=== PATIENT | male | born 1955 | race Caucasian/White ===

== ENCOUNTER 2018-11-09 18:54 | Inpatient (IN) | payer BC, MEDICARE ==
[~2018-11-09] VITALS: Ht 182.9 cm; Wt 110.0 kg
[~2018-11-09 18:54] MED LIST: ACAR50TA PO; ALLO100T PO; CHOL100010 PO; DULO-31 PO; GABA-338 PO; GLYB2.5T59 PO; HYDR-4069 PO; LOP25T PO; MAG400T PO; NIF150C PO; OLAN2.5T3 PO; OXYC40TA39 PO; PANT20TA3 PO; PARO25TA16 PO; PER10325T PO; ROSU20TA PO; SUCR1TAB28 PO; TAMS0.4C32 PO; TRAZ-91 PO
[2018-11-09] MEDS ORDERED: normal saline 1000ML IV soln IVB ONE (19:05)
[2018-11-09] MEDS ORDERED: naloxone 0.4 mg/ml inj IV ONE ×2 (19:05→19:10)
[2018-11-09 19:20] LABS: BASOPHILS % (AUTO) 0.6 % (0-1); EOSINOPHILS # (AUTO) 0.1 X10'3 (0-0.9); EOSINOPHILS % (AUTO) 1.4 % (0-6); HEMATOCRIT 45.5 % (42.0-52.0); HEMOGLOBIN 15.2 g/dl (14.0-17.9); LYMPHOCYTES % (AUTO) 32.7 % (21-51); MEAN CORPUSCULAR HEMOGLOBIN 31.1 PG (27.0-31.0); MEAN CORPUSCULAR HGB CONC 33.3 g/dL (33.0-36.5); MEAN CORPUSCULAR VOLUME 93.3 FL (78-98); MEAN PLATELET VOLUME 8.9 FL (7.4-10.4); MONOCYTES # (AUTO) 0.5 X10'3 (0-0.9); NEUTROPHILS # (AUTO) 3.6 X10'3 (1.8-7.7); NEUTROPHILS % (AUTO) 57.3 % (42-75); PLATELET COUNT 145 X10'3 (140-440); RED BLOOD COUNT 4.88 X10'6 (4.70-6.10); RED CELL DISTRIBUTION WIDTH 14.7 % (11.5-14.5); WHITE BLOOD COUNT 6.2 X10'3 (4.5-11.0)
[2018-11-09 19:31] LABS: ACETAMINOPHEN < 2.0 UG/ML (10-30); ALANINE AMINOTRANSFERASE 36 U/L (12-78); ALBUMIN 3.6 G/DL (3.4-5.0); ALBUMIN/GLOBULIN RATIO 0.9 (1.1-1.5); ALKALINE PHOSPHATASE 84 IU/L (46-116); ANION GAP 13 (8-16); ASPARTATE AMINO TRANSFERASE 21 U/L (10-37); BILIRUBIN,TOTAL 0.3 MG/DL (0.1-1.0); BLOOD UREA NITROGEN 24 MG/DL (7-18); BUN/CREATININE RATIO 21.8 (5.4-32.0); CALCIUM 8.9 MG/DL (8.5-10.1); CHLORIDE 101 MMOL/L (99-107); ETHANOL 0.258 GM/DL (0.0-0.010); GLUCOSE 110 MG/DL (70-104); POTASSIUM 4.2 MMOL/L (3.5-5.1); SODIUM 136 MMOL/L (135-145); TOTAL PROTEIN 7.4 G/DL (6.4-8.2); eGFR 67 ML/MIN
--- NOTE | 2018-11-09 19:57 | NUR ---
ATTEMPTED TO PLACE DE SOUZA CATH X 3, UNSUCCESSFUL, I USED DIFFERENT SIZE CATH AND TIP STYLES. MD AGREED WITH CONDOM CATH PLAN TO COLLECT URINE.
--- NOTE | 2018-11-09 20:06 | NUR ---
POISON CONTROL AGREES WITH PLAN OF CARE,
--- NOTE | 2018-11-09 20:41 | NUR ---
STILL UNABLE TO GET URINE SAMPLE FROM THE PATIENT.
--- NOTE | 2018-11-09 22:45 | NUR ---
PTS CALLED AND TOLD ME THAT THE PATIENT WAS RECENTLY RELEASED FROM [facility] FROM A MENTAL HEALTH HOLD BECAUSE THEY COULDN'T FIND PLACEMENT FOR HIM. SAID PT LEFT VOICEMAIL STATING HE WAS GOING TO KILL HIMSELF AND THAT HE DRANK AND TOOK SLEEPING PILLS. CAN CONFIRM THAT THE PATIENT WENT TO THE STORE HIMSELF AND BOUGHT WINE TO DRINK TONIGHT.
--- NOTE | 2018-11-09 22:52 | NUR ---
PT ABLE TO USE BEDSIDE COMMODE WITHOUT ASSISTANCE.
--- NOTE | 2018-11-09 23:36 | NUR ---
PT APPEARS TO BE SLEEPING AT THIS TIME, REFUSING VITAL SIGNS. PRIOR TO SLEEPING PT WAS A&OX4.
--- NOTE | 2018-11-10 01:33 | NUR ---
PT CONTINUES TO REFUSE VITAL SIGNS, PT UP TO USE BEDSIDE COMMODE UNDER HIS OWN POWER. APPEARS IN NO ACUTE DISTRESS.
[2018-11-10 02:41] LABS: URINE AMPHETAMINE SCREEN NEGATIVE (Neg); URINE BARBITUATE SCREEN NEGATIVE (Neg); URINE BENZODIAZEPINES SCREEN NEGATIVE (Neg); URINE CANNABINOID SCREEN NEGATIVE (Neg); URINE COCAINE SCREEN NEGATIVE (Neg); URINE METHADONE SCREEN NEGATIVE (Neg); URINE OPIATE SCREEN NEGATIVE (Neg); URINE PHENCYCLIDINE SCREEN NEGATIVE (Neg)
[2018-11-10 02:45] LABS: CLARITY,URINE CLEAR (Clear); COLOR,URINE YELLOW (Yellow); UA COLLECTION TYPE VOIDED
[2018-11-10 02:46] LABS: GLUCOSE, URINE NEGATIVE (Neg); KETONES,URINE NEGATIVE (Neg); NITRITES, URINE NEGATIVE (Neg); OCCULT BLOOD,URINE MODERATE (Neg); PROTEIN,URINE NEGATIVE (Neg)
[2018-11-10 02:47] LABS: LEUKOCYTE ESTERASE ,URINE NEGATIVE (Neg); UROBILINOGEN,URINE 0.2 E.U/dL (0.2-1.0)
[2018-11-10 02:54] LABS: BACTERIA,URINE FEW /HPF (Neg); SQUAMOUS EPITHELIAL CELL,UR FEW /LPF (FEW); WBC,URINE 0-4 /HPF (0-4)
--- NOTE | 2018-11-10 02:54 | NUR ---
WHILE CODING ANOTHER PATIENT, MR WOODY WAS FOUND SITTING ON THE FLOOR, HE HAD PLACED CHUCKS ON THE GROUND, AND SAID HE HELPED HIMSELF TO THE FLOOR. PT FOUND COVERED IN FECES DESPITE HAVING A BEDSIDE COMMODE IN THE ROOM AND SEEING HIM USE IT MULTIPLY TIMES. PT WAS TAKEN TO THE OUTSIDE SHOWER VIA WHEELCHAIR AND WAS HOSED OFF WITH WARM WATER. PT GIVEN A PAIR OF GREEN SCRUBS, AND WAS MEDICALLY CLEARED BY MD CALVILLO.
[2018-11-10 02:55] LABS: MUCUS STRANDS FEW /LPF (Neg)
--- NOTE | 2018-11-10 03:00 | NUR ---
PT GIVEN BLANKETS AND A PILLOW, ALL ITEMS REMOVED FROM THE ROOM INCLUDING THE GURNEY BED, MATTRESSES PLACED ON THE GROUND. PT LAYING ON HIS SIDE.
--- NOTE | 2018-11-10 05:38 | NUR ---
Dr. Nation notified of lactic acid that worsened with IVF. He states he will look into patient and place orders.
[2018-11-10] MEDS ORDERED: normal saline 1000ML IV soln IVB ONE (05:40)
--- NOTE | 2018-11-10 06:01 | NUR ---
New IV started and IVF hung. Attempted to collect stool sample from patient but none is present and he denies needing to have a BM at this time.
--- NOTE | 2018-11-10 06:14 | NUR ---
Telepsychiatrist updated on patient's condition and states she will see the patient in 2 minutes.
[2018-11-10] MEDS ORDERED: ondansetron/PF 4mg/2ml inj IV ONE (07:35)
[2018-11-10] MEDS ORDERED: pantoprazole 40 MG vial IV ONE (07:35)
[2018-11-10 07:59] LABS: BASOPHILS % (AUTO) 0.4 % (0-1); EOSINOPHILS % (AUTO) 0 % (0-6); HEMATOCRIT 38.9 % (42.0-52.0); HEMOGLOBIN 13.1 g/dl (14.0-17.9); LYMPHOCYTES # (AUTO) 0.9 X10'3 (1.1-4.8); LYMPHOCYTES % (AUTO) 12.1 % (21-51); MEAN CORPUSCULAR HEMOGLOBIN 31.5 PG (27.0-31.0); MEAN CORPUSCULAR HGB CONC 33.7 g/dL (33.0-36.5); MEAN CORPUSCULAR VOLUME 93.4 FL (78-98); MEAN PLATELET VOLUME 9.1 FL (7.4-10.4); MONOCYTES # (AUTO) 0.7 X10'3 (0-0.9); MONOCYTES % (AUTO) 8.8 % (2-12); NEUTROPHILS % (AUTO) 78.7 % (42-75); PLATELET COUNT 125 X10'3 (140-440); RED BLOOD COUNT 4.17 X10'6 (4.70-6.10); RED CELL DISTRIBUTION WIDTH 14.5 % (11.5-14.5); WHITE BLOOD COUNT 7.6 X10'3 (4.5-11.0)
[2018-11-10 08:08] LABS: ALANINE AMINOTRANSFERASE 24 U/L (12-78); ALBUMIN 3.1 G/DL (3.4-5.0); ALBUMIN/GLOBULIN RATIO 0.9 (1.1-1.5); ALKALINE PHOSPHATASE 79 IU/L (46-116); ANION GAP 17 (8-16); ASPARTATE AMINO TRANSFERASE 20 U/L (10-37); BILIRUBIN,TOTAL 0.3 MG/DL (0.1-1.0); BLOOD UREA NITROGEN 25 MG/DL (7-18); BUN/CREATININE RATIO 21.4 (5.4-32.0); CALCIUM 7.6 MG/DL (8.5-10.1); CHLORIDE 106 MMOL/L (99-107); CREATININE 1.17 MG/DL (0.60-1.10); GLUCOSE 106 MG/DL (70-104); LIPASE 61 U/L (73-393); POTASSIUM 4.3 MMOL/L (3.5-5.1); SODIUM 140 MMOL/L (135-145); TOTAL CARBON DIOXIDE 17.4 MMOL/L (24-32); TOTAL PROTEIN 6.5 G/DL (6.4-8.2); eGFR 63 ML/MIN
--- NOTE | 2018-11-10 08:12 | NUR ---
CALLED POISON CONTROL AND TOLD THEM THAT THE PT STATED HE TOOK A 90 DAY SUPPLY OF TRAZODONE.CALLED POISON CONTROL KISHAN STATES SHE IS GOING TO CLOSE OUT THE CASE. NO RECOMMENDATION AT THIS TIME, KISHAN STATES SUPPORTIVE CARE AND THAT THE PT NO LONGER NEEDS TO BE FOLLOWED BY POISON CONTROL
[2018-11-10] MEDS ORDERED: normal saline 1000ml 1,000 ML IV ONE (08:50)
[2018-11-10 09:10] LABS: CREATINE KINASE 239 U/L (39-308)
[2018-11-10] MEDS ORDERED: potassium Cl 40MEQ/NS 500ml 500 ML IV PRN ×2 (11:15)
[2018-11-10] MEDS ORDERED: ondansetron/PF 4mg/2ml inj IV PRN (11:15)
[2018-11-10] MEDS ORDERED: mag hydrox/Alum hydrox/simeth 30ml oral suspension PO PRN (11:15)
[2018-11-10] MEDS ORDERED: magnesium 2GM in 50ml NS 50 ML IV PRN (11:15)
[2018-11-10] MEDS ORDERED: morphine 4 MG/ML inj SYRINge IV PRN ×2 (11:15)
[2018-11-10] MEDS ORDERED: magnesium Cl slow-release 64mg tablet PO PRN (11:15)
[2018-11-10] MEDS ORDERED: magnesium 4gm in 100ml NS 100 ML IV PRN (11:15)
[2018-11-10] MEDS ORDERED: potassium Cl 20 mEq SR tablet PO PRN ×2 (11:15)
[2018-11-10] MEDS ORDERED: HYDROcodone/acetaminophen 5mg/325mg tablet PO PRN (11:15)
[2018-11-10] MEDS ORDERED: acetaminophen 325mg tablet PO PRN ×2 (11:15)
[2018-11-10] MEDS ORDERED: magnesium hydroxide 30ml (MOM) UD suspension PO PRN (11:15)
[2018-11-10] MEDS: normal saline 1000ml 1,000 ML IV SCH ×2 (12:00→20:27)
[2018-11-10 14:48] LABS: HEMOGLOBIN A1C 5.7 % (4.5-6.2)
[2018-11-10] MEDS ORDERED: haloperidol 5mg tablet PO PRN (16:15)
[2018-11-10] MEDS ORDERED: haloperidol lactate 5mg/ml inj IM PRN (16:15)
[2018-11-10] MEDS ORDERED: dextrose 50%-water 50ml dispensing syringe IV PRN (16:15)
[2018-11-10] MEDS ORDERED: MULT1TAB74 PO (18:43)
[2018-11-10] MEDS ORDERED: ZIN220C PO (18:46)
[2018-11-10] MEDS ORDERED: PROC-8 PO (18:53)
[2018-11-10] MEDS ORDERED: AMLO2.5T2 PO (18:56)
[2018-11-10] MEDS ORDERED: CHOL100024 PO (18:59)
[2018-11-10] MEDS ORDERED: CYAN100097 PO (19:02)
[2018-11-10] MEDS ORDERED: IBUP-1985 PO (19:03)
[2018-11-10] MEDS ORDERED: ACET-75 PO (19:21)
[2018-11-10 20:00] VITALS: BP 125/87
[2018-11-10] MEDS ORDERED: proCHLORperazine 10mg tablet PO PRN (20:05)
[2018-11-10] MEDS: sucralfate 1 gm tablet PO SCH (20:26)
[2018-11-10] MEDS: gabapentin 300mg capsule PO SCH (20:26)
[2018-11-10] MEDS: HYDROcodone/acetaminophen 10/325mg tab PO PRN (20:41)
[2018-11-11] VITALS: BP 136/73
[2018-11-11 05:02] LABS: BASOPHILS % (AUTO) 0.6 % (0-1); EOSINOPHILS # (AUTO) 0.1 X10'3 (0-0.9); EOSINOPHILS % (AUTO) 1.4 % (0-6); HEMATOCRIT 36.8 % (42.0-52.0); HEMOGLOBIN 12.4 g/dl (14.0-17.9); LYMPHOCYTES # (AUTO) 1.4 X10'3 (1.1-4.8); LYMPHOCYTES % (AUTO) 28.2 % (21-51); MEAN CORPUSCULAR HEMOGLOBIN 31.3 PG (27.0-31.0); MEAN CORPUSCULAR HGB CONC 33.6 g/dL (33.0-36.5); MEAN PLATELET VOLUME 9.3 FL (7.4-10.4); MONOCYTES # (AUTO) 0.6 X10'3 (0-0.9); NEUTROPHILS # (AUTO) 2.9 X10'3 (1.8-7.7); NEUTROPHILS % (AUTO) 57.8 % (42-75); PLATELET COUNT 115 X10'3 (140-440); RED BLOOD COUNT 3.95 X10'6 (4.70-6.10); RED CELL DISTRIBUTION WIDTH 14.4 % (11.5-14.5)
[2018-11-11 05:21] LABS: ALBUMIN 2.8 G/DL (3.4-5.0); ANION GAP 8 (8-16); BLOOD UREA NITROGEN 18 MG/DL (7-18); BUN/CREATININE RATIO 18.6 (5.4-32.0); CALCIUM 8.1 MG/DL (8.5-10.1); CHLORIDE 112 MMOL/L (99-107); CREATININE 0.97 MG/DL (0.60-1.10); GLUCOSE 86 MG/DL (70-104); POTASSIUM 3.9 MMOL/L (3.5-5.1); SODIUM 147 MMOL/L (135-145); TOTAL CARBON DIOXIDE 26.6 MMOL/L (24-32); eGFR 78 ML/MIN
[2018-11-11] MEDS: normal saline 1000ml 1,000 ML IV SCH (05:21)
--- NOTE | 2018-11-11 06:43 | NUR ---
Problems reprioritized. Patient report given, questions answered & plan of care reviewed with NIKKI Addison.
--- NOTE | 2018-11-11 07:08 | NUR ---
Patient in room [facility]A 351. I have received report from MOOK JORDAN and had the opportunity to ask questions and assume patient care.
[2018-11-11 07:30] VITALS: BP 128/74
[2018-11-11] MEDS: multivitamins, therapeutics tablet PO SCH (07:59)
[2018-11-11] MEDS: allopurinol 300 MG tablet PO SCH (07:59)
[2018-11-11] MEDS: sucralfate 1 gm tablet PO SCH ×4 (07:59→21:43)
[2018-11-11] MEDS: gabapentin 300mg capsule PO SCH ×3 (07:59→21:43)
[2018-11-11] MEDS: duloxetine 30mg CAPSULE.DR PO SCH (07:59)
[2018-11-11] MEDS: amLODIPine 2.5mg tablet PO SCH (08:00)
[2018-11-11] MEDS: K and/or MAG REPLACEMENT MC SCH (08:00)
[2018-11-11] MEDS: vitamin D (cholecalciferol) 1,000 unit tablet PO SCH (08:00)
[2018-11-11] MEDS ORDERED: acarbose 50mg tablet PO SCH (08:00)
[2018-11-11] MEDS: pantoprazole 40mg Tablet.DR PO SCH (08:00)
[2018-11-11] MEDS: PARoxetine 20mg tablet PO SCH (08:02)
[2018-11-11] MEDS: zinc sulfate 220mg capsule PO SCH (08:05)
[2018-11-11] MEDS: cyanocobalamin 500mcg tablet PO SCH (08:41)
[2018-11-11 11:00] VITALS: BP 143/80
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
[2018-11-11] MEDS: HYDROcodone/acetaminophen 10/325mg tab PO PRN ×2 (12:21→21:45)
[2018-11-11] MEDS: LORazepam 2 mg/ml vial IV PRN ×2 (12:21→21:41)
[2018-11-11] MEDS: acarbose 50mg tablet PO SCH (17:16)
--- NOTE | 2018-11-11 18:17 | NUR ---
GAVE REPORT TO MARIE JORDAN
--- NOTE | 2018-11-11 18:20 | NUR ---
Patient in room [facility]A 351. I have received report from Cyn JORDAN and had the opportunity to ask questions and assume patient care. Patient standing in room urinating at change of shift. Will continue to monitor.
--- NOTE | 2018-11-11 19:19 | NUR ---
Received in report that the patient stated that it was painful to urinate. UA taken, spoke with Dr. Fernandez who agreed okay to obtain UA. Will continue to monitor.
[2018-11-11 20:00] VITALS: BP 137/77
[2018-11-11 21:33] LABS: CLARITY,URINE CLEAR (Clear); COLOR,URINE YELLOW (Yellow); GLUCOSE, URINE NEGATIVE (Neg); KETONES,URINE NEGATIVE (Neg); LEUKOCYTE ESTERASE ,URINE NEGATIVE (Neg); NITRITES, URINE NEGATIVE (Neg); OCCULT BLOOD,URINE TRACE-INTACT (Neg); PROTEIN,URINE NEGATIVE (Neg); UROBILINOGEN,URINE 0.2 E.U/dL (0.2-1.0)
[2018-11-11 21:35] LABS: UA COLLECTION TYPE NON-SPECIFIED
--- NOTE | 2018-11-11 21:36 | NUR ---
Patient requesting ativan and norco, discussed with charge nurse Terri, patient received together on dayshift and tolerated well per report. Terri RN states she agrees okay to give both due to VS stable and patient becoming more anxious about his urination, IV and IV fluids. Will continue to monitor.
[2018-11-11 21:41] LABS: RBC,URINE 0-2 /HPF (0-2); WBC,URINE NONE SEEN /HPF (0-4)
[2018-11-11 21:42] LABS: BACTERIA,URINE NONE SEEN /HPF (Neg); SQUAMOUS EPITHELIAL CELL,UR FEW /LPF (FEW)
[2018-11-12] VITALS: BP 159/98
[2018-11-12 05:18] LABS: ALBUMIN 2.8 G/DL (3.4-5.0); ANION GAP 6 (8-16); BLOOD UREA NITROGEN 19 MG/DL (7-18); BUN/CREATININE RATIO 20.4 (5.4-32.0); CALCIUM 8.5 MG/DL (8.5-10.1); CHLORIDE 106 MMOL/L (99-107); CREATININE 0.93 MG/DL (0.60-1.10); GLUCOSE 108 MG/DL (70-104); POTASSIUM 3.7 MMOL/L (3.5-5.1); SODIUM 140 MMOL/L (135-145); TOTAL CARBON DIOXIDE 27.7 MMOL/L (24-32); eGFR 82 ML/MIN
--- NOTE | 2018-11-12 06:39 | NUR ---
Problems reprioritized. Patient report given, questions answered & plan of care reviewed with Art RN. Patient eyes closed respirations even.
--- NOTE | 2018-11-12 07:01 | NUR ---
Patient in room ROSA 351. I have received report from Kayla JORDAN and had the opportunity to ask questions and assume patient care.
[2018-11-12 07:09] VITALS: BP 140/79
[2018-11-12] MEDS: K and/or MAG REPLACEMENT MC SCH (08:00)
[2018-11-12] MEDS: acarbose 50mg tablet PO SCH ×3 (08:40→18:00)
[2018-11-12] MEDS: sucralfate 1 gm tablet PO SCH ×4 (08:41→20:49)
[2018-11-12] MEDS: duloxetine 30mg CAPSULE.DR PO SCH (08:41)
[2018-11-12] MEDS: gabapentin 300mg capsule PO SCH ×3 (08:42→20:50)
[2018-11-12] MEDS: amLODIPine 2.5mg tablet PO SCH (08:42)
[2018-11-12] MEDS: pantoprazole 40mg Tablet.DR PO SCH (08:44)
[2018-11-12] MEDS: multivitamins, therapeutics tablet PO SCH (08:44)
[2018-11-12] MEDS: allopurinol 300 MG tablet PO SCH (08:44)
[2018-11-12] MEDS: cyanocobalamin 500mcg tablet PO SCH (08:44)
[2018-11-12] MEDS: vitamin D (cholecalciferol) 1,000 unit tablet PO SCH (08:45)
[2018-11-12] MEDS: PARoxetine 20mg tablet PO SCH (08:46)
[2018-11-12] MEDS: zinc sulfate 220mg capsule PO SCH (09:01)
--- NOTE | 2018-11-12 11:02 | NUR ---
SS met w/pt and provided informed consent re pending 5150 evaluation from [facility]. Pt exhibited flat mood & affect, monotoned speech and low energy. SS also met w/attending RN to inform him of need for note from doctor re pt's medical clearance for d/c and a 1798 in order for SS to move fwd with referral to [facility] for 5150 Eval. SS will continue to monitor and complete referral to [facility] once pt's medically cleared for d/c and a 1798 ordered. Addendum: 11/12/18 at 1106 by Raven Ring SS Amended: Links added.
[2018-11-12 11:07] VITALS: BP 158/83
[2018-11-12] MEDS: HYDROcodone/acetaminophen 10/325mg tab PO PRN ×2 (14:04→19:29)
[2018-11-12] MEDS ORDERED: LORazepam 2 mg/ml vial IV PRN (16:15)
--- NOTE | 2018-11-12 18:29 | NUR ---
Problems reprioritized. Patient report given, questions answered & plan of care reviewed with Kayla JORDAN.
[2018-11-12 20:00] VITALS: BP 154/87
[2018-11-12] MEDS: ibuprofen 200mg tablet PO PRN (20:50)
[2018-11-12] MEDS: LORazepam 1 MG tablet PO PRN (23:47)
[2018-11-13] VITALS: BP 150/85
--- NOTE | 2018-11-13 06:00 | NUR ---
Patient in room ROSA 351. I have received report from Kayla JORDAN and had the opportunity to ask questions and assume patient care.
--- NOTE | 2018-11-13 06:37 | NUR ---
Problems reprioritized. Patient report given, questions answered & plan of care reviewed with Chika JORDAN. Patient resting eyes closed respirations even.
[2018-11-13] MEDS: K and/or MAG REPLACEMENT MC SCH (07:27)
[2018-11-13] MEDS: PARoxetine 20mg tablet PO SCH (07:38)
[2018-11-13] MEDS: amLODIPine 2.5mg tablet PO SCH (07:39)
[2018-11-13] MEDS: zinc sulfate 220mg capsule PO SCH (07:39)
[2018-11-13] MEDS: sucralfate 1 gm tablet PO SCH ×4 (07:39→20:08)
[2018-11-13] MEDS: cyanocobalamin 500mcg tablet PO SCH (07:39)
[2018-11-13] MEDS: acarbose 50mg tablet PO SCH ×3 (07:39→17:03)
[2018-11-13] MEDS: HYDROcodone/acetaminophen 10/325mg tab PO PRN ×4 (07:39→21:42)
[2018-11-13] MEDS: multivitamins, therapeutics tablet PO SCH (07:39)
[2018-11-13] MEDS: allopurinol 300 MG tablet PO SCH (07:39)
[2018-11-13] MEDS: pantoprazole 40mg Tablet.DR PO SCH (07:39)
[2018-11-13] MEDS: gabapentin 300mg capsule PO SCH ×3 (07:39→20:10)
[2018-11-13] MEDS: vitamin D (cholecalciferol) 1,000 unit tablet PO SCH (07:39)
[2018-11-13] MEDS: duloxetine 30mg CAPSULE.DR PO SCH (07:39)
[2018-11-13 07:47] VITALS: BP 150/81
--- NOTE | 2018-11-13 09:08 | NUR ---
SS contacted [facility] Office- [phone] to coordinate 5150 referral, referral packet faxed to [facility], a copy sent to co-located [facility] clinician. 5150 itzel pending. Addendum: 11/13/18 at 0910 by Raven YEE Amended: Links added.
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
[2018-11-13 11:46] VITALS: BP 143/93
--- NOTE | 2018-11-13 12:29 | NUR ---
SS had t/c w/[facility] office and was informed that pt's referral for a MH Assessment to determine 5150 status has been received and currently being reviewed @ this time. Addendum: 11/13/18 at 1231 by Raven Ring SS Amended: Links added.
--- NOTE | 2018-11-13 16:16 | NUR ---
SS met w/[facility] intake staff and advocated for them to review pt's referral for a 5150 to determine if admission to [facility] would be appropriate pending availability of bed. Referral packet was accepted for review. RN & CM informed. Addendum: 11/13/18 at 1617 by Raven Ring SS Amended: Links added.
[2018-11-13 18:00] VITALS: BP 142/88
--- NOTE | 2018-11-13 18:18 | NUR ---
Problems reprioritized. Patient report given, questions answered & plan of care reviewed with Rosario JORDAN.
--- NOTE | 2018-11-13 18:29 | NUR ---
Patient in room [facility]A 351. I have received report from WENDY JORDAN and had the opportunity to ask questions and assume patient care. PATIENT RESTING COMFORTABLY IN HIS ROOM WITH SITTER. NO S/S OF DISTRESS AT THIS TIME.
[2018-11-13] MEDS: LORazepam 1 MG tablet PO PRN (20:10)
[2018-11-13] MEDS: ibuprofen 200mg tablet PO PRN (20:10)
[2018-11-14] VITALS: BP 155/88
[2018-11-14] MEDS: LORazepam 1 MG tablet PO PRN (00:21)
--- NOTE | 2018-11-14 06:19 | NUR ---
Problems reprioritized. Patient report given, questions answered & plan of care reviewed with PHILIPP JORDAN. PATIENT WAS SLEEPING DURING BEDSIDE REPORT, RESTING COMFORTABLY NO S/S OF DISTRESS.
--- NOTE | 2018-11-14 06:41 | NUR ---
Patient in room [facility]A 351. I have received report from Rosario JORDAN and had the opportunity to ask questions and assume patient care.
[2018-11-14 06:49] VITALS: BP 176/87
[2018-11-14] MEDS: K and/or MAG REPLACEMENT MC SCH (06:55)
[2018-11-14] MEDS: acarbose 50mg tablet PO SCH ×2 (07:30→12:25)
[2018-11-14] MEDS: gabapentin 300mg capsule PO SCH ×2 (07:30→12:25)
[2018-11-14] MEDS: vitamin D (cholecalciferol) 1,000 unit tablet PO SCH (07:30)
[2018-11-14] MEDS: allopurinol 300 MG tablet PO SCH (07:30)
[2018-11-14] MEDS: zinc sulfate 220mg capsule PO SCH (07:30)
[2018-11-14] MEDS: sucralfate 1 gm tablet PO SCH ×2 (07:30→12:25)
[2018-11-14] MEDS: duloxetine 30mg CAPSULE.DR PO SCH (07:30)
[2018-11-14] MEDS: pantoprazole 40mg Tablet.DR PO SCH (07:31)
[2018-11-14] MEDS: amLODIPine 2.5mg tablet PO SCH (07:31)
[2018-11-14] MEDS: multivitamins, therapeutics tablet PO SCH (07:31)
[2018-11-14] MEDS: cyanocobalamin 500mcg tablet PO SCH (07:31)
[2018-11-14] MEDS: PARoxetine 20mg tablet PO SCH (07:39)
[2018-11-14] MEDS: HYDROcodone/acetaminophen 10/325mg tab PO PRN ×2 (07:39→12:26)
[2018-11-14 11:08] VITALS: BP 145/90
--- NOTE | 2018-11-14 14:33 | NUR ---
charge nurse compa RN d/c pt to ER overflow while I was at lunch. Report called to ER overflow Terry JORDAN pt escorted in w/c with security and one staff. all belongings sent with him.
[2018-11-14] MEDS ORDERED: LORazepam 1 MG tablet PO PRN (16:15)
[2018-11-14] MEDS ORDERED: LORazepam 2 mg/ml vial IV PRN (16:15)
== END 2018-11-14 14:47 | disposition short-term general hospital (02) | DRG 641 ==
LOC: ER 18:54 → ED HOLD 11-10 11:13 → SUR 3N 11-10 13:44
PROVIDERS: ADMIT Hospitalist; ATTEND Hospitalist
DX: E87.2 Acidosis (principal); F10.239 Alcohol dependence with withdrawal, unspecified; G93.40 Encephalopathy, unspecified; R45.851 Suicidal ideations; E11.9 Type 2 diabetes mellitus without complications; F10.229 Alcohol dependence with intoxication, unspecified; G89.29 Other chronic pain; M54.9 Dorsalgia, unspecified; R19.7 Diarrhea, unspecified; Z88.8 Allergy status to other drugs, medicaments and biological substances; Z79.899 Other long term (current) drug therapy
CPT/HCPCS: 36415; 71045; 74176; 80048; 80053; 80305; 80320; 80329; 81001; 82550; 83036; 83605; 83690; 83735; 84145; 85025; 87040; 87070; 93005; 96374; 96375; 97116; 97161; 99285; C9113; G0378; J2060; J2310; J2405; J3420; J7030

== ENCOUNTER 2018-11-14 14:51 | Emergency (ER) | payer BC, MEDICARE ==
[~2018-11-14] VITALS: Ht 180.3 cm; Wt 81.0 kg
[~2018-11-14 14:51] MED LIST changes: +AMLO2.5T2 PO; -CHOL100010 PO; +CHOL100024 PO; +CYAN100097 PO; -GLYB2.5T59 PO; -HYDR-4069 PO; +IBUP-1985 PO; -LOP25T PO; -MAG400T PO; +MULT1TAB74 PO; -NIF150C PO; -OLAN2.5T3 PO; -OXYC40TA39 PO; -PER10325T PO; +PROC-8 PO; -ROSU20TA PO; +ROSU20TA2 PO; -TAMS0.4C32 PO; -TRAZ-91 PO; +ZIN220C PO
--- NOTE | 2018-11-14 15:00 | NUR ---
Received report from NIKKI Fortune on surgical floor. Patient arrived to floor and in bed 23. Patient refusing vitals at this time. Patient resting in bed, respirations even and unlabored will continue to monitor him.
--- NOTE | 2018-11-14 16:09 | NUR ---
assisted patient to bathroom
--- NOTE | 2018-11-14 16:20 | NUR ---
Kristensamy resting on his back in bed, respirations even and unlabored, no distress noted. will continue to monitor.
--- NOTE | 2018-11-14 16:37 | NUR ---
Patient refusing to review or verify any home medications at this time. Patient states "I do not want to be here so I do not want to cooperate." will attempt again at a later time and continue to monitor.
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
--- NOTE | 2018-11-14 17:37 | NUR ---
Patient refusing vital signs, states "I don't belong here so I'm not going to let anyone do anything while I'm here."
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
--- NOTE | 2018-11-14 18:50 | NUR ---
Pt recieved dinner tray, but refused to eat. PCT will attempt to give pt a snack later in the evening. Pt resting quietly in bed. Respirations even and unlabored
--- NOTE | 2018-11-14 19:40 | NUR ---
Pt lying in bed awake. Pt quiet and resting. Pt noted to have a cough.
--- NOTE | 2018-11-14 20:30 | NUR ---
Pt resting quietly in bed. Respirations even and unlabored, occasional cough noted. Pt made one trip to the bathroom independantly.
--- NOTE | 2018-11-14 21:21 | NUR ---
PT refused food and water.
--- NOTE | 2018-11-14 21:40 | NUR ---
Pt C/O chronic back pain of 02/22. Pt med rec completed and signed. Ibuprofen 600 mg ordered.
[2018-11-14] MEDS ORDERED: ibuprofen tablet 400 MG TABLET PO PRN (22:25)
--- NOTE | 2018-11-14 22:50 | NUR ---
Pt given 600 mg ibuprofen for chronic back pain. Pt requested ativan for sleep, stating that he was given ativan on the floor. Pt told that ativan was part of the ETOH protocol, and other options were discussed. Pt has a history of use of trazadone 300 mg for sleep. Pt behavior calm and cooperative.
--- NOTE | 2018-11-14 23:08 | NUR ---
PT asked for water. This personal lines underwriter offered PT neris villalta and he accepted.
[2018-11-14] MEDS: ibuprofen 200mg tablet PO PRN (23:40)
--- NOTE | 2018-11-14 23:50 | NUR ---
Pt resting quietly, lying on his back. Respirations even and unlabored, occasional cough.
[2018-11-15] MEDS ORDERED: traZODone 50mg tablet PO SCH ×2 (00:35→21:00)
[2018-11-15] MEDS ORDERED: benzonatate 100mg capsule PO ONE ×2 (00:35→19:50)
--- NOTE | 2018-11-15 00:40 | NUR ---
Pt given trazadone 100 mg for sleep, and tessalon pearls for cough. pt behavior calm and cooperative.
--- NOTE | 2018-11-15 01:22 | NUR ---
Pt lying in bed on back, eyes closed, appears to be sleeping. Occasional cough, otherwise respirations even and unlabored.
--- NOTE | 2018-11-15 02:30 | NUR ---
Patient resting in bed quietly, appears to be asleep. Respirations even and unlabored. Occasional coughing.
[2018-11-15] MEDS ORDERED: proCHLORperazine 10mg tablet PO PRN (04:30)
[2018-11-15] MEDS: ibuprofen 200mg tablet PO PRN ×2 (05:38→15:32)
[2018-11-15] MEDS ORDERED: atorvastatin 20mg tablet PO SCH (08:00)
[2018-11-15] MEDS ORDERED: acetaminophen 325mg tablet PO ONE ×2 (08:25→19:50)
[2018-11-15] MEDS: PARoxetine 20mg tablet PO SCH (08:29)
[2018-11-15] MEDS: gabapentin 300mg capsule PO SCH ×3 (08:29→20:04)
[2018-11-15] MEDS: pantoprazole 40mg Tablet.DR PO SCH (08:30)
[2018-11-15] MEDS: zinc sulfate 220mg capsule PO SCH (08:30)
[2018-11-15] MEDS: duloxetine 30mg CAPSULE.DR PO SCH (08:30)
[2018-11-15] MEDS: sucralfate 1 gm tablet PO SCH ×4 (08:31→20:04)
[2018-11-15] MEDS: vitamin D (cholecalciferol) 1,000 unit tablet PO SCH (08:31)
[2018-11-15] MEDS: multivitamins, therapeutics tablet PO SCH (08:32)
[2018-11-15] MEDS: amLODIPine 2.5mg tablet PO SCH (08:32)
[2018-11-15] MEDS: allopurinol 300 MG tablet PO SCH (09:01)
[2018-11-15] MEDS: cyanocobalamin 500mcg tablet PO SCH (09:01)
[2018-11-15] MEDS: acarbose 50mg tablet PO SCH ×3 (09:02→17:37)
--- NOTE | 2018-11-15 09:55 | NUR ---
PT IS SUPINE IN BED, EQUAL, UNLABORED BREATHING, EYES CLOSED, NO S/S OF DISTRESS
--- NOTE | 2018-11-15 10:52 | NUR ---
CALLED PHARMACY RE: [facility], THEY WILL ADDRESS
--- NOTE | 2018-11-15 11:14 | NUR ---
PT IS SUPINE IN BED, EYES CLOSED, APPEARS TO BE SLEEPING, UNLABORED BREATHING PRESENT
--- NOTE | 2018-11-15 12:23 | NUR ---
PT IS SUPINE IN BED EYES CLOSED, JUST REPOSITIONED HIMSELF, NO AGITATION
--- NOTE | 2018-11-15 13:38 | NUR ---
PT DOES NOT WANT TO EAT HIS DINNER, HE SAYS IT DOES NOT LOOK GOOD TO HIM, HE WAS OFFERED ALTERNATIVE MEALS, SAID NOTHING SOUNDED GOOD EXCEPT PEPSI, WE DO NOT HAVE PEPSI. I ASKED HIM IF HE WAS UP TO VISITORS TODAY, HE ASKE WHO, I SAID ONE OF YOUR CHILDREN, HE SAID THIS IS OK, I ASKED IF IT WAS OK TO SPEAK TO HIS , OR IF SHE WAS ALLOWED TO VISIT [facility] TODAY, HE SAID THAT YES SHE COULD COME AND THAT I COULD CALL HER
--- NOTE | 2018-11-15 14:55 | NUR ---
PT IS AWAKE IN BED, SUPINE, NO S/S OF DISTRESS OBSERVED
--- NOTE | 2018-11-15 15:50 | NUR ---
NASIM A NOTE FROM THE PHARMACY RE: PTS OWN MEDICATION (CRESTOR), I CALLED THE PTS , SHE WILL BRING IT IN TONIGHT
--- NOTE | 2018-11-15 15:51 | NUR ---
PT REQUESTED TYLENOL, I OBTAINED FOR HIM, NO S/S OF DISRTRESS
--- NOTE | 2018-11-15 17:12 | NUR ---
PT IS SUPINE IN BED, NO S/S OF DISTRESS OBSERVED, SPONTANEOUS BREATHING NOTED
--- NOTE | 2018-11-15 18:12 | NUR ---
PT IS IN BED, HAS JUST ARRIVED, CALM, NO S/S OF AGITATION OBSERVED
--- NOTE | 2018-11-15 18:42 | NUR ---
PTS BROUGHT IN MEDICATIONS, ROSUVASTATIN CALCIUM 40 MG TABS # 81
--- NOTE | 2018-11-15 19:18 | NUR ---
PT IS SUPINE IN BED NO S/S OF DISTRESS OBSERVED
[2018-11-15] MEDS: betamet diprop/prop gly 0.05% cream 15gm TP SCH (20:00)
[2018-11-15] MEDS ORDERED: traZODone 50mg tablet PO ONE (21:05)
--- NOTE | 2018-11-15 22:00 | NUR ---
PT IS RESTING COMFORTABLY, NO S/S OF ANY DISTRESS.
--- NOTE | 2018-11-16 01:21 | NUR ---
NO NEEDS AT THIS TIME. PT RESTING COMFORTABLY. RESPIRATIONS EVEN AND UNLABORED. NO S/S OF DISTRESS.
--- NOTE | 2018-11-16 04:54 | NUR ---
NO NEEDS AT THIS TIME. PT RESTING COMFORTABLY. RESPIRATIONS EVEN AND UNLABORED. NO S/S OF DISTRESS.
[2018-11-16] MEDS: ibuprofen 200mg tablet PO PRN ×3 (05:40→23:33)
[2018-11-16] MEDS: pantoprazole 40mg Tablet.DR PO SCH (07:57)
[2018-11-16] MEDS: multivitamins, therapeutics tablet PO SCH (07:58)
[2018-11-16] MEDS: sucralfate 1 gm tablet PO SCH ×4 (07:58→20:59)
[2018-11-16] MEDS: PARoxetine 20mg tablet PO SCH (07:58)
[2018-11-16] MEDS: allopurinol 300 MG tablet PO SCH (07:59)
[2018-11-16] MEDS: gabapentin 300mg capsule PO SCH ×3 (07:59→20:59)
[2018-11-16] MEDS: zinc sulfate 220mg capsule PO SCH (08:00)
[2018-11-16] MEDS: acarbose 50mg tablet PO SCH ×3 (08:00→17:37)
[2018-11-16] MEDS: vitamin D (cholecalciferol) 1,000 unit tablet PO SCH (08:01)
[2018-11-16] MEDS: duloxetine 30mg CAPSULE.DR PO SCH (08:02)
[2018-11-16] MEDS: CRESTOR 40 MG PO SCH (08:03)
[2018-11-16] MEDS: cyanocobalamin 500mcg tablet PO SCH (08:04)
[2018-11-16] MEDS: amLODIPine 2.5mg tablet PO SCH (08:05)
[2018-11-16] MEDS: betamet diprop/prop gly 0.05% cream 15gm TP SCH ×2 (08:06→20:00)
--- NOTE | 2018-11-16 18:22 | NUR ---
gave report to caleb davis
--- NOTE | 2018-11-16 18:30 | NUR ---
Received report from Marylou JORDAN, patient provided dinner, will continue to monitor.
--- NOTE | 2018-11-17 00:36 | NUR ---
Covering for RN Lunch break: Patient is resting in bed with eyes closed. Resp are even and unlabored. Appearing to sleep comfortably without concerns or issues noted. Will continue to monitor.
[2018-11-17] MEDS: sucralfate 1 gm tablet PO SCH ×4 (07:52→20:10)
[2018-11-17] MEDS: pantoprazole 40mg Tablet.DR PO SCH (07:52)
[2018-11-17] MEDS: gabapentin 300mg capsule PO SCH ×3 (07:53→20:10)
[2018-11-17] MEDS: duloxetine 30mg CAPSULE.DR PO SCH (07:53)
[2018-11-17] MEDS: amLODIPine 2.5mg tablet PO SCH (07:53)
[2018-11-17] MEDS: PARoxetine 20mg tablet PO SCH (07:53)
[2018-11-17] MEDS: vitamin D (cholecalciferol) 1,000 unit tablet PO SCH (07:54)
[2018-11-17] MEDS: allopurinol 300 MG tablet PO SCH (07:54)
[2018-11-17] MEDS: zinc sulfate 220mg capsule PO SCH (07:54)
[2018-11-17] MEDS: multivitamins, therapeutics tablet PO SCH (07:54)
[2018-11-17] MEDS: cyanocobalamin 500mcg tablet PO SCH ×2 (08:27→08:31)
[2018-11-17] MEDS: acarbose 50mg tablet PO SCH ×3 (08:31→18:33)
[2018-11-17] MEDS: CRESTOR 40 MG PO SCH (08:32)
[2018-11-17] MEDS: betamet diprop/prop gly 0.05% cream 15gm TP SCH ×2 (08:32→20:00)
[2018-11-17] MEDS: ibuprofen 200mg tablet PO PRN ×2 (12:44→21:31)
--- NOTE | 2018-11-18 01:23 | NUR ---
Patient resting comfortably, no needs voiced at this time. 16 even and unlabored respirations.
[2018-11-18] MEDS: ibuprofen 200mg tablet PO PRN ×2 (05:44→14:04)
--- NOTE | 2018-11-18 06:30 | NUR ---
Awake at change of shift observation. Up to the bathroom then returned to bed. Pleasant upon staff obsrvation.
[2018-11-18] MEDS: duloxetine 30mg CAPSULE.DR PO SCH (07:55)
[2018-11-18] MEDS: pantoprazole 40mg Tablet.DR PO SCH (07:55)
[2018-11-18] MEDS: zinc sulfate 220mg capsule PO SCH (07:55)
[2018-11-18] MEDS: multivitamins, therapeutics tablet PO SCH (07:55)
[2018-11-18] MEDS: cyanocobalamin 500mcg tablet PO SCH (07:55)
[2018-11-18] MEDS: gabapentin 300mg capsule PO SCH ×3 (07:55→20:12)
[2018-11-18] MEDS: acarbose 50mg tablet PO SCH ×3 (07:56→18:15)
[2018-11-18] MEDS: CRESTOR 40 MG PO SCH (07:56)
[2018-11-18] MEDS: sucralfate 1 gm tablet PO SCH ×4 (07:57→20:12)
[2018-11-18] MEDS: vitamin D (cholecalciferol) 1,000 unit tablet PO SCH (08:04)
[2018-11-18] MEDS: amLODIPine 2.5mg tablet PO SCH (08:05)
[2018-11-18] MEDS: allopurinol 300 MG tablet PO SCH (08:06)
[2018-11-18] MEDS: betamet diprop/prop gly 0.05% cream 15gm TP SCH (08:06)
[2018-11-18] MEDS: PARoxetine 20mg tablet PO SCH (08:17)
--- NOTE | 2018-11-18 08:30 | NUR ---
Served breakfast tray. Ate 100% of his meal. All medications administered as ordered. Asked patient if he had thoughts of harming self or ending his life. Patient adamently stated "No." Said "I want to go home. I want to see the clouds. I want to take care of my kids. I want to take a shower."
--- NOTE | 2018-11-18 10:30 | NUR ---
Resting quietly at this time. Has made no requests to staff. Color and respirations WNL.
--- NOTE | 2018-11-18 12:34 | NUR ---
Continues to rest in his bed at this time.
--- NOTE | 2018-11-18 15:27 | NUR ---
Patients , Hilton, called and was concerned regarding patient not having had a shower due to psoriasis and that patients uses diprolene AF gel at home that works more effectively than the cream. I asked her to bring in the medication from home and we would send to pharmacy to be able to use on patient while in ED OF. I then stated to patient that per are policy and protocols were do not take patients to the shower due to potential for harm or elopement risk. Patients stated that his psoriasis is worsening because he has been unable to shower. I stated to her that I would speak with my director regarding this issue and call back. I spoke with Jillian and she stated that we could help assist patient to shower, Hilary PCT in OF stated that they would be able to get him a shower this evening or joann morning. Called , Hilton, regarding this and she was satisfied and thankful. Stated that she would be in later this evening to bring medication from home. Dena RN aware of conversation with .
--- NOTE | 2018-11-18 16:23 | NUR ---
Patient was assisted with hygiene per request of . Given electric razor to use. Shaved without problem. Provided with a tub of cleaning products, fresh towels and clean scrubs. Went into the bathroom and cleaned himself up without event. Given prescription cream to use as needed on body.
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
--- NOTE | 2018-11-18 19:01 | NUR ---
The patient attemtped to AWOL off the unit. He was brought back by Security staff.
[2018-11-18] MEDS ORDERED: LORazepam 1 MG tablet PO ONE (19:05)
--- NOTE | 2018-11-18 19:05 | NUR ---
PA and charge poster made aware of AWOL attempt.
--- NOTE | 2018-11-18 19:26 | NUR ---
PTS IS AT BEDSIDE.
[2018-11-18] MEDS: BETAMET DIPROP TOP SCH (20:12)
[2018-11-18] MEDS: [UNRECOGNIZED DRUG - OTHER] TOP SCH (20:12)
[2018-11-18] MEDS ORDERED: traZODone 50mg tablet PO SCH (21:30)
[2018-11-18] MEDS ORDERED: traZODone 50mg tablet PO PRN (21:30)
--- NOTE | 2018-11-18 21:33 | NUR ---
The patient refused ativan offered earlier. He does seem less angry and more cooperative at this time. Dr. Aldana made aware of patient complaint of insomnia and orders received.
--- NOTE | 2018-11-18 23:18 | NUR ---
The patient requested and received prn dose of trazodone.
--- NOTE | 2018-11-19 00:53 | NUR ---
The patient appears to be asleep at this time
--- NOTE | 2018-11-19 03:12 | NUR ---
The patient appears to be asleep at this time. He was up to use the bathroom xs one.
--- NOTE | 2018-11-19 05:04 | NUR ---
The patient appears to be asleep at this time.
[2018-11-19] MEDS: BETAMET DIPROP TOP SCH ×2 (08:00→20:00)
[2018-11-19] MEDS: [UNRECOGNIZED DRUG - OTHER] TOP SCH ×2 (08:00→20:00)
[2018-11-19] MEDS: acarbose 50mg tablet PO SCH ×3 (08:14→17:13)
[2018-11-19] MEDS: duloxetine 30mg CAPSULE.DR PO SCH (08:16)
[2018-11-19] MEDS: cyanocobalamin 500mcg tablet PO SCH (08:16)
[2018-11-19] MEDS: zinc sulfate 220mg capsule PO SCH (08:16)
[2018-11-19] MEDS: pantoprazole 40mg Tablet.DR PO SCH (08:16)
[2018-11-19] MEDS: PARoxetine 20mg tablet PO SCH (08:17)
[2018-11-19] MEDS: CRESTOR 40 MG PO SCH (08:17)
[2018-11-19] MEDS: multivitamins, therapeutics tablet PO SCH (08:17)
[2018-11-19] MEDS: vitamin D (cholecalciferol) 1,000 unit tablet PO SCH (08:17)
[2018-11-19] MEDS: gabapentin 300mg capsule PO SCH ×3 (08:17→21:10)
[2018-11-19] MEDS: amLODIPine 2.5mg tablet PO SCH (08:58)
[2018-11-19] MEDS: ibuprofen 200mg tablet PO PRN ×2 (08:58→17:13)
[2018-11-19] MEDS: sucralfate 1 gm tablet PO SCH ×4 (08:58→21:10)
[2018-11-19] MEDS: allopurinol 300 MG tablet PO SCH (08:59)
[2018-11-19] MEDS: acetaminophen 325mg tablet PO PRN ×2 (12:15→21:10)
--- NOTE | 2018-11-19 12:46 | NUR ---
relieving RN for lunch, pt is sleeping on bed, resp even and unlabored
--- NOTE | 2018-11-19 20:00 | NUR ---
The patient was re-evaluated by [facility] Crisis RN and his 5150 was renewed and [facility] is continuing to look for inpatient hospitalization for further psychiatric hospitalization. After he talked with the Crisis RN he stated that he would no longer being accepting calls or visits from his because he was angry with her because of information she gave the crisis RN. He continues to complain that the food is "horrible" When asked if he was having anxiety he replied, "Yeah I would say so. I just want to cry" He then began stating he no longer wanted to be and that he wanted to move to [place]. He denies being suicidal. He presents as impulsive and emotionally immature. He was cooperative with the evening assessment.
[2018-11-19] MEDS: traZODone 50mg tablet PO SCH (21:11)
--- NOTE | 2018-11-19 22:57 | NUR ---
The patient appears to be asleep at this time.
--- NOTE | 2018-11-20 02:02 | NUR ---
The patient apears to be asleep at this time.
--- NOTE | 2018-11-20 03:50 | NUR ---
The patient is asleep at this time.
--- NOTE | 2018-11-20 05:36 | NUR ---
The patient is awake at this time. He appeared to sleep well with the trazodone throughout the night.
--- NOTE | 2018-11-20 07:00 | NUR ---
pt remains asleep without distress.
[2018-11-20] MEDS: [UNRECOGNIZED DRUG - OTHER] TOP SCH ×2 (08:00→20:00)
[2018-11-20] MEDS: BETAMET DIPROP TOP SCH ×2 (08:00→20:00)
[2018-11-20] MEDS: cyanocobalamin 500mcg tablet PO SCH (08:50)
[2018-11-20] MEDS: PARoxetine 20mg tablet PO SCH (08:50)
[2018-11-20] MEDS: pantoprazole 40mg Tablet.DR PO SCH (08:50)
[2018-11-20] MEDS: multivitamins, therapeutics tablet PO SCH (08:50)
[2018-11-20] MEDS: gabapentin 300mg capsule PO SCH ×3 (08:50→20:55)
[2018-11-20] MEDS: duloxetine 30mg CAPSULE.DR PO SCH (08:50)
[2018-11-20] MEDS: vitamin D (cholecalciferol) 1,000 unit tablet PO SCH (08:50)
[2018-11-20] MEDS: allopurinol 300 MG tablet PO SCH (08:51)
[2018-11-20] MEDS: acarbose 50mg tablet PO SCH ×3 (08:51→17:36)
[2018-11-20] MEDS: CRESTOR 40 MG PO SCH (08:51)
[2018-11-20] MEDS: zinc sulfate 220mg capsule PO SCH (08:51)
[2018-11-20] MEDS: amLODIPine 2.5mg tablet PO SCH (08:51)
--- NOTE | 2018-11-20 09:00 | NUR ---
visited and read book to the pt. Pt ate breakfast and has since returned to sleep and left.
[2018-11-20] MEDS: sucralfate 1 gm tablet PO SCH ×4 (09:02→20:54)
[2018-11-20] MEDS: ibuprofen 200mg tablet PO PRN (09:03)
--- NOTE | 2018-11-20 11:00 | NUR ---
pt sleeping in bed without distress.
--- NOTE | 2018-11-20 13:00 | NUR ---
pt sleeping in bed without distress.
[2018-11-20] MEDS: acetaminophen 325mg tablet PO PRN (14:58)
--- NOTE | 2018-11-20 15:00 | NUR ---
pt awoke and was c/o lower back pain 04/24. Pt given tylenol for the pain.
--- NOTE | 2018-11-20 17:00 | NUR ---
pt pain reduced and he was able to fall back to sleep. Pt resting without distress.
[2018-11-20] MEDS: traZODone 50mg tablet PO SCH (20:55)
--- NOTE | 2018-11-21 00:16 | NUR ---
Received Report from Zulma. Patient sleeping. HOB elevated. No needs at this time. Will continue to monitor.
--- NOTE | 2018-11-21 02:05 | NUR ---
Patient sleeping. HOB elevated. No needs at this time. Will continue to monitor.
--- NOTE | 2018-11-21 03:11 | NUR ---
Patient sleeping. Will continue to monitor.
--- NOTE | 2018-11-21 05:01 | NUR ---
Patient sleeping. Will continue to monitor.
--- NOTE | 2018-11-21 06:30 | NUR ---
pt sleeping with no obvious distress.
[2018-11-21] MEDS: BETAMET DIPROP TOP SCH ×2 (08:00→20:00)
[2018-11-21] MEDS: [UNRECOGNIZED DRUG - OTHER] TOP SCH ×2 (08:00→20:00)
[2018-11-21] MEDS: ibuprofen 200mg tablet PO PRN (08:08)
[2018-11-21] MEDS: sucralfate 1 gm tablet PO SCH ×4 (08:09→20:31)
[2018-11-21] MEDS: acetaminophen 325mg tablet PO PRN (08:09)
[2018-11-21] MEDS: PARoxetine 20mg tablet PO SCH (08:10)
[2018-11-21] MEDS: pantoprazole 40mg Tablet.DR PO SCH (08:10)
[2018-11-21] MEDS: duloxetine 30mg CAPSULE.DR PO SCH (08:10)
[2018-11-21] MEDS: allopurinol 300 MG tablet PO SCH (08:11)
[2018-11-21] MEDS: cyanocobalamin 500mcg tablet PO SCH (08:11)
[2018-11-21] MEDS: multivitamins, therapeutics tablet PO SCH (08:11)
[2018-11-21] MEDS: gabapentin 300mg capsule PO SCH ×3 (08:12→20:31)
[2018-11-21] MEDS: amLODIPine 2.5mg tablet PO SCH (08:12)
[2018-11-21] MEDS: CRESTOR 40 MG PO SCH (08:13)
[2018-11-21] MEDS: acarbose 50mg tablet PO SCH ×3 (08:13→18:00)
[2018-11-21] MEDS: zinc sulfate 220mg capsule PO SCH (08:13)
[2018-11-21] MEDS: vitamin D (cholecalciferol) 1,000 unit tablet PO SCH (08:14)
--- NOTE | 2018-11-21 14:09 | NUR ---
SON, WHO IS A RETAIL SECURITY PROFESSIONAL IN [place], WAS HERE TO VISIT HIS DAD.
[2018-11-21] MEDS: traZODone 50mg tablet PO SCH (20:31)
--- NOTE | 2018-11-22 01:13 | NUR ---
PT SLEEPING QUIETLY THRU OUT THE NIGHT. NO ACUTE DISTRESS NOTED AT THIS TIME.
--- NOTE | 2018-11-22 03:06 | NUR ---
pt remains asleep (note: daylight savings time change)
--- NOTE | 2018-11-22 04:08 | NUR ---
no changes. Pt still remains asleep
--- NOTE | 2018-11-22 05:00 | NUR ---
continues to sleep
--- NOTE | 2018-11-22 07:31 | NUR ---
pt currently sleeping. poc reviewed
[2018-11-22] MEDS: multivitamins, therapeutics tablet PO SCH (08:00)
[2018-11-22] MEDS: acarbose 50mg tablet PO SCH ×3 (08:36→17:32)
[2018-11-22] MEDS: vitamin D (cholecalciferol) 1,000 unit tablet PO SCH (08:36)
[2018-11-22] MEDS: cyanocobalamin 500mcg tablet PO SCH (08:37)
[2018-11-22] MEDS: pantoprazole 40mg Tablet.DR PO SCH (08:37)
[2018-11-22] MEDS: PARoxetine 20mg tablet PO SCH (08:37)
[2018-11-22] MEDS: BETAMET DIPROP TOP SCH ×2 (08:37→20:00)
[2018-11-22] MEDS: gabapentin 300mg capsule PO SCH ×3 (08:37→21:27)
[2018-11-22] MEDS: duloxetine 30mg CAPSULE.DR PO SCH (08:37)
[2018-11-22] MEDS: [UNRECOGNIZED DRUG - OTHER] TOP SCH ×2 (08:37→20:00)
[2018-11-22] MEDS: zinc sulfate 220mg capsule PO SCH (08:46)
[2018-11-22] MEDS: sucralfate 1 gm tablet PO SCH ×4 (08:46→20:40)
[2018-11-22] MEDS: allopurinol 300 MG tablet PO SCH (08:46)
[2018-11-22] MEDS: amLODIPine 2.5mg tablet PO SCH (08:46)
[2018-11-22] MEDS: CRESTOR 40 MG PO SCH (08:48)
--- NOTE | 2018-11-22 09:30 | NUR ---
pt refuses to turn on light, pt c/o light bothering his eyes
--- NOTE | 2018-11-22 10:30 | NUR ---
pt upset with staff about lights
[2018-11-22] MEDS: acetaminophen 325mg tablet PO PRN (13:21)
[2018-11-22] MEDS: ibuprofen 200mg tablet PO PRN (17:56)
--- NOTE | 2018-11-22 20:41 | NUR ---
PT REFUSING TO EAT DINNER MEAL JOCELYNEY, PT ONLY WANTS STEWART, I INFORMED THE PATIENT THAT HE NEEDS TO EAT FOOD WITH COMPLETE NUTRITION WHICH HE REFUSED.
--- NOTE | 2018-11-22 20:54 | NUR ---
PT READING BOOK, APPEARS IN NO DISTRESS. HOLDING HS MEDICATIONS UNTIL HE IS READY TO SLEEP.
[2018-11-22] MEDS: traZODone 50mg tablet PO SCH (21:27)
--- NOTE | 2018-11-22 22:46 | NUR ---
PT APPEARS TO BE SLEEPING, IN NO ACUTE DISTRESS. RESP EVEN, UNLABORED.
[2018-11-23] MEDS: ibuprofen 200mg tablet PO PRN ×2 (00:42→14:53)
[2018-11-23] MEDS: acetaminophen 325mg tablet PO PRN ×2 (00:42→14:53)
--- NOTE | 2018-11-23 00:44 | NUR ---
patient awake and asked for both ibuprofen and tylenol for his lower throbbing and sharp back pain. he stated that he takes ibuprofen and tylenol together at home for his chronic low back pain
--- NOTE | 2018-11-23 01:10 | NUR ---
PT CONTINUES TO SLEEP, RESP EVEN, UNLABORED.
--- NOTE | 2018-11-23 03:22 | NUR ---
PT RESTING COMFORTABLY, IN NO DISTRESS, RESP EVEN, UNLABORED.
--- NOTE | 2018-11-23 06:22 | NUR ---
Pt sleeping. Respirations even and unlabored.
[2018-11-23] MEDS: allopurinol 300 MG tablet PO SCH (08:13)
[2018-11-23] MEDS: duloxetine 30mg CAPSULE.DR PO SCH (08:13)
[2018-11-23] MEDS: amLODIPine 2.5mg tablet PO SCH (08:13)
[2018-11-23] MEDS: gabapentin 300mg capsule PO SCH ×3 (08:13→22:38)
[2018-11-23] MEDS: sucralfate 1 gm tablet PO SCH ×4 (08:13→22:40)
[2018-11-23] MEDS: zinc sulfate 220mg capsule PO SCH (08:13)
[2018-11-23] MEDS: cyanocobalamin 500mcg tablet PO SCH (08:14)
[2018-11-23] MEDS: pantoprazole 40mg Tablet.DR PO SCH (08:14)
[2018-11-23] MEDS: vitamin D (cholecalciferol) 1,000 unit tablet PO SCH (08:14)
[2018-11-23] MEDS: multivitamins, therapeutics tablet PO SCH (08:14)
[2018-11-23] MEDS: CRESTOR 40 MG PO SCH (08:14)
[2018-11-23] MEDS: PARoxetine 20mg tablet PO SCH (08:14)
[2018-11-23] MEDS: [UNRECOGNIZED DRUG - OTHER] TOP SCH ×2 (08:15→20:00)
[2018-11-23] MEDS: BETAMET DIPROP TOP SCH ×2 (08:15→20:00)
[2018-11-23] MEDS: acarbose 50mg tablet PO SCH ×4 (08:15→22:38)
--- NOTE | 2018-11-23 08:16 | NUR ---
Up to eat breakfast.
--- NOTE | 2018-11-23 09:30 | NUR ---
at bedside visiting with pt.
--- NOTE | 2018-11-23 13:11 | NUR ---
Only ate a couple of bites of lunch.
--- NOTE | 2018-11-23 15:00 | NUR ---
Inquiring about his 5150 expiration date. Informed him he was placed on 5150 last night and we are trying to find placement.
--- NOTE | 2018-11-23 16:23 | NUR ---
Pt calm and cooperative.
--- NOTE | 2018-11-23 19:38 | NUR ---
This patient is mid Fowlers position in bed. He is awake with his eyes closed. This patient will not speak with this abstract writer at this time. The bed is in a low position and locked. Two rails are up. The patient is in view from the nursing station.
--- NOTE | 2018-11-23 19:59 | NUR ---
This patients arrived to visit. This typewriter tester met with her in the waiting room. The was advised that the patient was non compliant as far as speeking or making eye contact. The inquired as to when he would be moved upstairs to or another facility? This typewriter tester advised her that this is unknown at this time. The advised this typewriter tester that her enjoys fruits and has a problem chewing. The patients diet will be evaluated. The patients will check back in the morning.
[2018-11-23] MEDS: traZODone 50mg tablet PO SCH (22:34)
--- NOTE | 2018-11-24 06:30 | NUR ---
Asleep upon change of shift observation. Color and breathing WNL. Undisturbed at this time.
[2018-11-24] MEDS: multivitamins, therapeutics tablet PO SCH (07:57)
[2018-11-24] MEDS: vitamin D (cholecalciferol) 1,000 unit tablet PO SCH (07:57)
[2018-11-24] MEDS: cyanocobalamin 500mcg tablet PO SCH (07:57)
[2018-11-24] MEDS: gabapentin 300mg capsule PO SCH ×4 (07:57→20:40)
[2018-11-24] MEDS: PARoxetine 20mg tablet PO SCH (07:57)
[2018-11-24] MEDS: zinc sulfate 220mg capsule PO SCH (07:57)
[2018-11-24] MEDS: duloxetine 30mg CAPSULE.DR PO SCH (07:57)
[2018-11-24] MEDS: pantoprazole 40mg Tablet.DR PO SCH (07:57)
[2018-11-24] MEDS: CRESTOR 40 MG PO SCH (07:59)
[2018-11-24] MEDS: BETAMET DIPROP TOP SCH ×2 (07:59→20:41)
[2018-11-24] MEDS: [UNRECOGNIZED DRUG - OTHER] TOP SCH ×2 (07:59→20:41)
--- NOTE | 2018-11-24 08:00 | NUR ---
Awake. Asking for ice water. Ice water provided. All medications administered as ordered without event.
[2018-11-24] MEDS: amLODIPine 2.5mg tablet PO SCH (08:03)
[2018-11-24] MEDS: sucralfate 1 gm tablet PO SCH ×5 (08:03→20:38)
[2018-11-24] MEDS: allopurinol 300 MG tablet PO SCH (08:03)
--- NOTE | 2018-11-24 08:10 | NUR ---
at bedside visiting with patient at this time.
--- NOTE | 2018-11-24 08:30 | NUR ---
Patient refused breakfast stating "The food here is terrible." All AM medications administered as ordered without event. Denies suicidal ideation or intent at this time.
[2018-11-24] MEDS: acarbose 50mg tablet PO SCH ×3 (13:00→18:00)
--- NOTE | 2018-11-24 13:00 | NUR ---
Slept until lunchtime except to get up and use the bathroom. Served lunch. Refused his meal, again stating "The food here is terrible." Offered medication as ordered. Stated "Nope. I'm refusing those meds. When asked what prompted him to refuse his meds patient said "I'm like a car. If it ain't broke then don't fix it. I'm not taking those meds."
--- NOTE | 2018-11-24 17:25 | NUR ---
Resting in bed until 1644 when grandson here to visit. Grandson at bedside engaging in conversation with grandfather. Patient asked for his to be called to notify her grandson was here. Patient decided to call her himself. Grandmother here to rock picker grandson.
--- NOTE | 2018-11-24 18:00 | NUR ---
Patient refused 1700 and 1800 PO medications.
--- NOTE | 2018-11-24 18:17 | NUR ---
Patient offered dinner tray. Stated "Nope. I refuse."
[2018-11-24] MEDS: ibuprofen 200mg tablet PO PRN (20:40)
[2018-11-24] MEDS: acetaminophen 325mg tablet PO PRN (20:40)
[2018-11-24] MEDS: traZODone 50mg tablet PO SCH (20:41)
--- NOTE | 2018-11-24 20:56 | NUR ---
pt given medication as scheduled, pt given gell o and a cup of ice water, pt tolerated well.
[2018-11-25] MEDS ORDERED: aspirin 81mg tab.chew PO ONE (03:15)
--- NOTE | 2018-11-25 03:16 | NUR ---
pt asked me to listen to his heart. heart rate is irregular. pt c/o chest pain L shoulder blade, left chest pain. EKG done and informed dr. rodriguez. please see new orders.
--- NOTE | 2018-11-25 04:10 | NUR ---
pt given turkey sandwhich and 2 cups of juices as requested. pt consumed 100%.
--- NOTE | 2018-11-25 05:28 | NUR ---
pt asleep, resp even and unlabored, sitter in line of sight.
--- NOTE | 2018-11-25 06:35 | NUR ---
Asleep upon change of shirt observation. Breathing and color WNL. In line of sight of staff.
--- NOTE | 2018-11-25 08:30 | NUR ---
Awakened for breakfast and morning medications. Educated patient about the importance of eating food throughout the day to counteract the possibility of stomach upset when taking medications on an empty stomach. Patient agreed to eat his breakfast. Did so without prodding. All medications administered as ordered.
[2018-11-25] MEDS: PARoxetine 20mg tablet PO SCH (08:50)
[2018-11-25] MEDS: CRESTOR 40 MG PO SCH (08:50)
[2018-11-25] MEDS: cyanocobalamin 500mcg tablet PO SCH (08:50)
[2018-11-25] MEDS: allopurinol 300 MG tablet PO SCH (08:51)
[2018-11-25] MEDS: vitamin D (cholecalciferol) 1,000 unit tablet PO SCH (08:51)
[2018-11-25] MEDS: zinc sulfate 220mg capsule PO SCH (08:51)
[2018-11-25] MEDS: gabapentin 300mg capsule PO SCH ×3 (08:51→20:10)
[2018-11-25] MEDS: amLODIPine 2.5mg tablet PO SCH (08:51)
[2018-11-25] MEDS: duloxetine 30mg CAPSULE.DR PO SCH (08:51)
[2018-11-25] MEDS: multivitamins, therapeutics tablet PO SCH (08:51)
[2018-11-25] MEDS: sucralfate 1 gm tablet PO SCH ×4 (08:51→20:09)
[2018-11-25] MEDS: [UNRECOGNIZED DRUG - OTHER] TOP SCH ×2 (08:53→20:00)
[2018-11-25] MEDS: BETAMET DIPROP TOP SCH ×2 (08:53→20:00)
[2018-11-25] MEDS: pantoprazole 40mg Tablet.DR PO SCH (08:54)
[2018-11-25] MEDS: acarbose 50mg tablet PO SCH ×3 (08:55→17:39)
--- NOTE | 2018-11-25 10:30 | NUR ---
Stays in bed except to get up to use the bathroom. Received a call from his . Spoke with her briefly.
--- NOTE | 2018-11-25 12:05 | NUR ---
Sloane from [facility] at bedside, discussing a safety plan with patient.
[2018-11-25] MEDS: acetaminophen 325mg tablet PO PRN ×2 (12:14→20:13)
[2018-11-25] MEDS: ibuprofen 200mg tablet PO PRN ×2 (12:14→20:13)
--- NOTE | 2018-11-25 12:20 | NUR ---
Asked for and given medication (Tylenol/Motrin) for pain "all over, especially in my back, laying in this bed."
--- NOTE | 2018-11-25 15:30 | NUR ---
Slept for remainder of the afternoon. In line of sight of staff at all times
--- NOTE | 2018-11-25 18:47 | NUR ---
Patient resting comfortably in bed at this time. Patient is sad appearing and speaks in a low tone of voice. Patient is upset that his hold is being renewed and he does not understand why. He states, "The mental health nurse said some mumb-jumbo." Patient is currently denying SI/HI and has a home with family. He believes that he is being placed on a hold because he has an alcohol problem. No physical complaints at this time.
--- NOTE | 2018-11-25 19:37 | NUR ---
Spoke to patient's about her feelings surrounding the patient's renewed mental health hold. She expresses her frustration with the fact that "these younger people came in after him and get placed faster. It is not fair and he deserves to be treated the same as everyone else." She is under the impression that he is not being placed due to his age and medical problems. She also expresses frustration at the lack of a television and states his linens have not been changed, "in 5 days." Linens will be changed this evening. She states that if he is not going to be placed, she would rather him come home than, "just live here."
[2018-11-25] MEDS: traZODone 50mg tablet PO SCH (20:09)
--- NOTE | 2018-11-25 21:17 | NUR ---
Patient sleeping comfortably in a supine position.
--- NOTE | 2018-11-25 22:12 | NUR ---
Patient continues to sleep supine.
--- NOTE | 2018-11-25 23:11 | NUR ---
No change. Patient continues to sleep.
--- NOTE | 2018-11-26 00:23 | NUR ---
Patient got up to restroom and went back to sleep.
--- NOTE | 2018-11-26 02:51 | NUR ---
Patient continues sleeping with even, unlabored breathing.
--- NOTE | 2018-11-26 07:24 | NUR ---
Pt sleeping right side normal RR
--- NOTE | 2018-11-26 07:25 | NUR ---
Pt sleeping RR even and unlabored
[2018-11-26] MEDS: pantoprazole 40mg Tablet.DR PO SCH (07:30)
[2018-11-26] MEDS: sucralfate 1 gm tablet PO SCH ×4 (08:00→20:59)
[2018-11-26] MEDS: gabapentin 300mg capsule PO SCH ×3 (09:04→20:59)
[2018-11-26] MEDS: vitamin D (cholecalciferol) 1,000 unit tablet PO SCH (09:06)
[2018-11-26] MEDS: zinc sulfate 220mg capsule PO SCH (09:07)
[2018-11-26] MEDS: CRESTOR 40 MG PO SCH (09:08)
[2018-11-26] MEDS: acarbose 50mg tablet PO SCH ×3 (09:08→18:00)
[2018-11-26] MEDS: PARoxetine 20mg tablet PO SCH (09:09)
[2018-11-26] MEDS: cyanocobalamin 500mcg tablet PO SCH (09:09)
[2018-11-26] MEDS: duloxetine 30mg CAPSULE.DR PO SCH (09:10)
[2018-11-26] MEDS: multivitamins, therapeutics tablet PO SCH (09:10)
[2018-11-26] MEDS: [UNRECOGNIZED DRUG - OTHER] TOP SCH ×2 (09:11→20:00)
[2018-11-26] MEDS: BETAMET DIPROP TOP SCH ×2 (09:11→20:00)
--- NOTE | 2018-11-26 09:14 | NUR ---
Pt up for breakfast medications given. Pt does not want to complete ADL's at this time. He agreed to get up prior to lunch for his ADL's and change his linens.
[2018-11-26] MEDS: allopurinol 300 MG tablet PO SCH (09:51)
[2018-11-26] MEDS: amLODIPine 2.5mg tablet PO SCH (09:52)
--- NOTE | 2018-11-26 11:38 | NUR ---
Pt up to bathroom completed ADL's w/assistance. Pt linens changed. Pt cooperative asking to go back to bed until lunch is here.
[2018-11-26] MEDS: ibuprofen 200mg tablet PO PRN (13:09)
[2018-11-26] MEDS: acetaminophen 325mg tablet PO PRN (13:09)
--- NOTE | 2018-11-26 13:40 | NUR ---
Pt is sleeping on his bed. He c/o of pain in his lower back and was given motrin and tylenol.
--- NOTE | 2018-11-26 15:23 | NUR ---
Pt has been sleeping on his back. RR even and unlabored.
--- NOTE | 2018-11-26 16:59 | NUR ---
Pt continues to sleep on his back. RR even and unlabored.
--- NOTE | 2018-11-26 18:34 | NUR ---
Pt continues to sleep on his back. RR even and unlabored. He refused 1800 meds.
--- NOTE | 2018-11-26 20:00 | NUR ---
Pt was sleeping on back respirations even an unlabored. Pt woke up abruptly when I a walked into his room. 1:1 therapeutic assessment done. Pt was cooperative. Pt appearance was dishelved. Pt appeared to be in pain when asked to lean forward during lung asculation - pt denied pain. Pt denied any AH/VH or SI. Pt stated "I am not suicidal, I drank too much and made a mistake". " I have a family to take care of, I don't know why they won't let me go." Pt has a flat affect, which is appropriate for his mood". Pt denies he is depressed. Pt refused his 1999 and 2100 meds, "I will refuse anything from this hospital.". Pt doesn't remember the last time he had a BM, "it is because he doesn't eat anything." Addendum: 11/26/18 at 2227 by APRIL Pt states "I am refusing everything from this hospital"
[2018-11-26] MEDS: traZODone 50mg tablet PO SCH (20:59)
--- NOTE | 2018-11-26 21:00 | NUR ---
Patient refused 2000 and 2100 meds. Pt stated "I am refusing everything from this hospital"
--- NOTE | 2018-11-26 21:35 | NUR ---
Pt sleeping on his back. RR equal and unlabored
--- NOTE | 2018-11-26 22:28 | NUR ---
Pt sleeping on his back. RR even and unlabored
--- NOTE | 2018-11-26 23:56 | NUR ---
Pt laying on back, looking up at ceiling.
--- NOTE | 2018-11-27 01:54 | NUR ---
Pt laying in supine postion, staring at the ceiling. RR even and unlabored. Diamond Powder Mixer observes pt mouth moving.
--- NOTE | 2018-11-27 04:00 | NUR ---
Pt still awake, staring at the ceiling, silently moving mouth. RR even and unlabored
--- NOTE | 2018-11-27 05:06 | NUR ---
Pt awake, requested some ice water. Pt was pleasant in his speech.
--- NOTE | 2018-11-27 05:36 | NUR ---
Patient refused 0530 vital signs. States "I refuse, I am not sick"
--- NOTE | 2018-11-27 06:31 | NUR ---
Patient supine at 45 degree angle with eyes wide open. No obvious distress. Continue to monitor.
[2018-11-27] MEDS: pantoprazole 40mg Tablet.DR PO SCH (07:30)
[2018-11-27] MEDS: [UNRECOGNIZED DRUG - OTHER] TOP SCH ×2 (08:00→20:00)
[2018-11-27] MEDS: BETAMET DIPROP TOP SCH ×2 (08:00→20:00)
[2018-11-27] MEDS: vitamin D (cholecalciferol) 1,000 unit tablet PO SCH (08:00)
[2018-11-27] MEDS: PARoxetine 20mg tablet PO SCH (08:00)
[2018-11-27] MEDS: amLODIPine 2.5mg tablet PO SCH (08:00)
[2018-11-27] MEDS: acarbose 50mg tablet PO SCH ×3 (08:00→17:59)
[2018-11-27] MEDS: multivitamins, therapeutics tablet PO SCH (08:00)
[2018-11-27] MEDS: gabapentin 300mg capsule PO SCH ×3 (08:00→21:36)
[2018-11-27] MEDS: sucralfate 1 gm tablet PO SCH ×4 (08:00→20:52)
[2018-11-27] MEDS: cyanocobalamin 500mcg tablet PO SCH (08:00)
[2018-11-27] MEDS: zinc sulfate 220mg capsule PO SCH (08:00)
[2018-11-27] MEDS: CRESTOR 40 MG PO SCH (08:00)
[2018-11-27] MEDS: duloxetine 30mg CAPSULE.DR PO SCH (08:00)
--- NOTE | 2018-11-27 08:10 | NUR ---
Patient was polite but refused his medication. Continue to monitor.
[2018-11-27] MEDS: allopurinol 300 MG tablet PO SCH (08:17)
--- NOTE | 2018-11-27 08:45 | NUR ---
Patient's visiting patient. No distress noted. Continue to monitor.
--- NOTE | 2018-11-27 10:59 | NUR ---
Patient awake and laying in bed. No distress observed. Continue to monitor.
--- NOTE | 2018-11-27 13:10 | NUR ---
Patient only ate tomatoes on his lunch tray. Patient states his tray stinks. Although patient is really polite. Continue to monitor.
--- NOTE | 2018-11-27 15:06 | NUR ---
Patient awake and reclining in bed. No distress observed. Continue to monitor.
--- NOTE | 2018-11-27 17:24 | NUR ---
Patient awake and alert and reclining in bed, no distress observed. RN asked patient when he had his last seizure. Patient denies ever having seizures. Patient has been calm and has politely refused all his meds today. Patient was up all night and has not slept today. RN spoke to patient about taking his Trazodone tonight and patient stated he would consider it. Patient denies suicidal ideation at this time. Patient denies visual/auditory hallucinations. Patient then up to BR, steady gait, due to RN requesting a urine sample. Patient got back in to bed without assistance. Continue to monitor.
[2018-11-27 17:39] LABS: CLARITY,URINE SLIGHTLY CLOUDY (Clear); COLOR,URINE YELLOW (Yellow); GLUCOSE, URINE NEGATIVE (Neg); KETONES,URINE 40 mg/dl (Neg); LEUKOCYTE ESTERASE ,URINE NEGATIVE (Neg); NITRITES, URINE NEGATIVE (Neg); OCCULT BLOOD,URINE NEGATIVE (Neg); PROTEIN,URINE NEGATIVE (Neg)
[2018-11-27 17:40] LABS: UA COLLECTION TYPE CLN CATCH MIDSTREAM
[2018-11-27] MEDS: ibuprofen 200mg tablet PO PRN (17:42)
[2018-11-27 17:47] LABS: SQUAMOUS EPITHELIAL CELL,UR MANY /LPF (FEW)
[2018-11-27 17:48] LABS: MUCUS STRANDS MODERATE /LPF (Neg)
[2018-11-27] MEDS: acetaminophen 325mg tablet PO PRN (17:48)
[2018-11-27 17:53] LABS: BACTERIA,URINE FEW /HPF (Neg); WBC,URINE 0-4 /HPF (0-4)
[2018-11-27 18:22] LABS: BASOPHILS # (AUTO) 0.1 X10'3 (0-0.2); BASOPHILS % (AUTO) 0.9 % (0-1); EOSINOPHILS # (AUTO) 0.1 X10'3 (0-0.9); EOSINOPHILS % (AUTO) 0.9 % (0-6); HEMOGLOBIN 15.9 g/dl (14.0-17.9); LYMPHOCYTES # (AUTO) 1.6 X10'3 (1.1-4.8); LYMPHOCYTES % (AUTO) 24.1 % (21-51); MEAN CORPUSCULAR HEMOGLOBIN 31.3 PG (27.0-31.0); MEAN CORPUSCULAR HGB CONC 34.6 g/dL (33.0-36.5); MEAN CORPUSCULAR VOLUME 90.6 FL (78-98); MEAN PLATELET VOLUME 10.2 FL (7.4-10.4); MONOCYTES # (AUTO) 0.4 X10'3 (0-0.9); MONOCYTES % (AUTO) 6.7 % (2-12); NEUTROPHILS # (AUTO) 4.3 X10'3 (1.8-7.7); NEUTROPHILS % (AUTO) 67.4 % (42-75); PLATELET COUNT 149 X10'3 (140-440); RED BLOOD COUNT 5.08 X10'6 (4.70-6.10); RED CELL DISTRIBUTION WIDTH 13.8 % (11.5-14.5); WHITE BLOOD COUNT 6.5 X10'3 (4.5-11.0)
--- NOTE | 2018-11-27 18:30 | NUR ---
Patient ate a "good dinner". Patient ate well tonight and stated he enjoyed the food. Patient smiling and in no distress. Patient denies suicidal ideation. Patient beginning to take his medications. Continue to monitor.
[2018-11-27 18:49] LABS: ALANINE AMINOTRANSFERASE 19 U/L (12-78); ALBUMIN 3.5 G/DL (3.4-5.0); ALBUMIN/GLOBULIN RATIO 0.9 (1.1-1.5); ALKALINE PHOSPHATASE 76 IU/L (46-116); ANION GAP 8 (8-16); ASPARTATE AMINO TRANSFERASE 16 U/L (10-37); BILIRUBIN,TOTAL 0.4 MG/DL (0.1-1.0); BLOOD UREA NITROGEN 28 MG/DL (7-18); BUN/CREATININE RATIO 27.2 (5.4-32.0); CALCIUM 9.3 MG/DL (8.5-10.1); CHLORIDE 103 MMOL/L (99-107); CREATININE 1.03 MG/DL (0.60-1.10); GLUCOSE 108 MG/DL (70-104); POTASSIUM 4.2 MMOL/L (3.5-5.1); SODIUM 139 MMOL/L (135-145); TOTAL CARBON DIOXIDE 27.8 MMOL/L (24-32); TOTAL PROTEIN 7.3 G/DL (6.4-8.2); eGFR 72 ML/MIN
--- NOTE | 2018-11-27 20:30 | NUR ---
Patient sitting up in bed reading a book. No distress observed. Continue to monitor.
[2018-11-27] MEDS: traZODone 50mg tablet PO SCH (21:38)
--- NOTE | 2018-11-27 22:05 | NUR ---
Patient took his meds and is sleeping. Patient was up for 24 hours and did not take a nap today. Pt appears comfortable, no distress observed.
--- NOTE | 2018-11-28 00:07 | NUR ---
Patient sleeping supine. No restlessness observed. Continue to monitor.
--- NOTE | 2018-11-28 00:09 | NUR ---
REC'D REPORT FROM NIKKI RENDON - PT RESTING COMFORTABLY AT THIS TIME. NO OBSERVABLE DISTRESS. WILL CONTINUE TO MONITOR.
--- NOTE | 2018-11-28 01:39 | NUR ---
pt resting. no distress noted. will continue to monitor
--- NOTE | 2018-11-28 03:11 | NUR ---
pt continues to sleep. self positions, no distress noted.
--- NOTE | 2018-11-28 05:19 | NUR ---
pt awakened for morning vitals. he has slept all night with no issues. pt returns to sleep after vitals taken.
[2018-11-28] MEDS: pantoprazole 40mg Tablet.DR PO SCH ×2 (07:30→08:51)
[2018-11-28] MEDS: zinc sulfate 220mg capsule PO SCH ×2 (08:00→08:51)
[2018-11-28] MEDS: PARoxetine 10mg tablet PO SCH ×2 (08:00→09:01)
[2018-11-28] MEDS: gabapentin 300mg capsule PO SCH ×3 (08:00→13:00)
[2018-11-28] MEDS: BETAMET DIPROP TOP SCH ×2 (08:00→08:54)
[2018-11-28] MEDS: [UNRECOGNIZED DRUG - OTHER] TOP SCH ×2 (08:00→08:54)
[2018-11-28] MEDS: sucralfate 1 gm tablet PO SCH ×4 (08:00→17:00)
[2018-11-28] MEDS: amLODIPine 2.5mg tablet PO SCH (08:00)
[2018-11-28] MEDS: cyanocobalamin 500mcg tablet PO SCH ×2 (08:00→08:51)
[2018-11-28] MEDS: acarbose 50mg tablet PO SCH ×4 (08:00→17:36)
[2018-11-28] MEDS: multivitamins, therapeutics tablet PO SCH ×2 (08:00→08:51)
[2018-11-28] MEDS: vitamin D (cholecalciferol) 1,000 unit tablet PO SCH ×2 (08:00→08:51)
[2018-11-28] MEDS: duloxetine 30mg CAPSULE.DR PO SCH ×2 (08:00→08:52)
[2018-11-28] MEDS: CRESTOR 40 MG PO SCH ×2 (08:00→08:55)
[2018-11-28] MEDS: allopurinol 300 MG tablet PO SCH ×2 (08:30→09:01)
--- NOTE | 2018-11-28 09:14 | NUR ---
PATIENT IS REFUSING ALL MORNING MEDICATIONS AND STATES "I WANT TO LIVE, SO I AM REFUSING ALL MY MEDS".
--- NOTE | 2018-11-28 09:45 | NUR ---
Recieved report from NIKKI Bro, [facility].
--- NOTE | 2018-11-28 09:55 | NUR ---
Attempted to give morning meds to pt. refused meds stating "I have many reasons not to take them, the previous nurse contaminated them with feces, and another nurse got ink all over them." Very little of breakfast consumed. Stated he would eat something later but would not take meds. meds wasted with NIKKI Bro.
--- NOTE | 2018-11-28 13:12 | NUR ---
Pt given meal. Pt. refused to take medications. Pt is pleasant but adamant about not wanting to take his meds.
--- NOTE | 2018-11-28 14:00 | NUR ---
pt. ate sm amount of rice and drank milk. 20% of meal.
--- NOTE | 2018-11-28 15:36 | NUR ---
pt. laying quietly with eyes closed. nad noted.
[2018-11-28 17:55] VITALS: BP 107/72
== END 2018-11-28 20:00 | disposition home or self-care (01) ==
LOC: ER 14:51
DX: F32.9 Major depressive disorder, single episode, unspecified (principal); E11.9 Type 2 diabetes mellitus without complications; G89.29 Other chronic pain; M54.9 Dorsalgia, unspecified; Z90.49 Acquired absence of other specified parts of digestive tract; Z88.8 Allergy status to other drugs, medicaments and biological substances
CPT/HCPCS: 36415; 80053; 81001; 82948; 84484; 85025; 93005; 99285